=== PATIENT | female | born 1960 | race Caucasian/White ===

== ENCOUNTER 2021-10-17 18:09 | Emergency (ER) | payer MEDICARE ==
[~2021-10-17] VITALS: Ht 165.1 cm; Wt 79.8 kg
[2021-10-17] MEDS ORDERED: ACET325 PO (18:28)
[2021-10-17] MEDS ORDERED: Aspir 8181 MG PO (18:28)
[2021-10-17] MEDS ORDERED: ELIQUIS2.5 MG PO (18:28)
[2021-10-17] MEDS ORDERED: ATOR40TA PO (18:28)
[2021-10-17] MEDS ORDERED: LEVSOD100 PO (18:29)
[2021-10-17] MEDS ORDERED: LISI5 PO (18:29)
[2021-10-17] MEDS ORDERED: Budeprion Xl300 MG PO (18:29)
[2021-10-17] MEDS ORDERED: FURO40 PO (18:29)
[2021-10-17] MEDS ORDERED: CARV6.25 PO (18:29)
[2021-10-17] MEDS ORDERED: METO10 PO (18:30)
[2021-10-17] MEDS ORDERED: METO2.5 PO (18:30)
[2021-10-17] MEDS ORDERED: MAGNESIUM OXID500 MG PO (18:30)
[2021-10-17] MEDS ORDERED: NITR.4SL SL (18:31)
[2021-10-17] MEDS ORDERED: ONDA4 (18:31)
[2021-10-17] MEDS ORDERED: CLOP75 PO (18:32)
[2021-10-17] MEDS ORDERED: POTA10T PO (18:32)
[2021-10-17] MEDS ORDERED: OXYC5 PO (18:32)
[2021-10-17] MEDS ORDERED: ALBU90OI6 INH (18:32)
[2021-10-17] MEDS ORDERED: TOPI25 PO (18:33)
[2021-10-17] MEDS ORDERED: VENL75ER PO (18:33)
== END 2021-10-17 19:53 | disposition home or self-care (01) ==
LOC: ER 18:09
DX: R04.0 Epistaxis (principal); I10 Essential (primary) hypertension; I25.2 Old myocardial infarction
CPT/HCPCS: 30901; 99284-25; A9270

== ENCOUNTER 2021-10-28 07:59 | Emergency (ER) | payer MEDICARE, OTHER ==
[~2021-10-28] VITALS: Ht 165.1 cm; Wt 64.9 kg
[~2021-10-28 07:59] MED LIST: ACET325 PO; ALBU90OI6 INH; ATOR40TA PO; Aspir 8181 MG PO; Budeprion Xl300 MG PO; CARV6.25 PO; CLOP75 PO; ELIQUIS2.5 MG PO; FURO40 PO; LEVSOD100 PO; LISI5 PO; MAGNESIUM OXID500 MG PO; METO10 PO; METO2.5 PO; NITR.4SL SL; ONDA4; OXYC5 PO; POTA10T PO; TOPI25 PO; VENL75ER PO
[2021-10-28 09:40] LABS: Calcium, Ionized (POC) 1.19 mmol/L (1.10-1.46); Chloride (POC) 98 mmol/L (98-108); Glucose (ISTAT POC) 103 mg/dL (70-99); Hemoglobin (POC) 10.5 g/dL (12.0-16.0); Potassium (POC) 5.7 mmol/L (3.5-5.5); Sodium (POC) 125 mmol/L (135-148); Total CO2 (POC) 19 mmol/L (21-32)
== END 2021-10-28 10:41 | disposition home or self-care (01) ==
LOC: ER 07:59
PROVIDERS: Emergency Medicine
DX: K91.840 Postprocedural hemorrhage of a digestive system organ or structure following a digestive system procedure (principal); I10 Essential (primary) hypertension; I25.2 Old myocardial infarction; Z87.891 Personal history of nicotine dependence; Z88.5 Allergy status to narcotic agent; Z88.6 Allergy status to analgesic agent; Z88.8 Allergy status to other drugs, medicaments and biological substances; Z91.048 Other nonmedicinal substance allergy status; Z79.899 Other long term (current) drug therapy
CPT/HCPCS: 80047; 85014; 99283

== ENCOUNTER 2021-10-29 20:23 | Emergency (ER) | payer MEDICARE, OTHER ==
[~2021-10-29] VITALS: Ht 172.7 cm; Wt 72.6 kg
== END 2021-10-29 23:31 | disposition home or self-care (01) ==
LOC: ER 20:23
DX: L76.22 Postprocedural hemorrhage of skin and subcutaneous tissue following other procedure (principal); I10 Essential (primary) hypertension; I25.2 Old myocardial infarction; Z87.891 Personal history of nicotine dependence
CPT/HCPCS: 99283

== ENCOUNTER 2021-10-31 14:16 | Emergency (ER) | payer MEDICARE ==
[~2021-10-31] VITALS: Ht 167.6 cm; Wt 72.6 kg
[2021-10-31] MEDS ORDERED: MELA3 PO (14:33)
[2021-10-31 14:39] LABS: BASOPHILS ABSOLUTE AUTO 0.03 K/mm3 (0.00-0.23); BASOPHILS PERCENT AUTO 0 % (0-2); EOSINOPHILS ABSOLUTE AUTO 0.06 K/mm3 (0.00-0.68); EOSINOPHILS PERCENT AUTO 1 % (0-6); Hematocrit 24.9 % (33.0-51.0); Hemoglobin 8.3 g/dL (11.5-16.0); IMMATURE GRAN PERCENT AUTO 1 % (0-1); LYMPHOCYTES PERCENT AUTO 15 % (21-46); MONOCYTES ABSOLUTE AUTO 1.28 K/mm3 (0.16-1.47); MONOCYTES PERCENT AUTO 15 % (4-13); Mean Corpuscular HGB 33.1 pg (26.0-34.0); Mean Corpuscular HGB Conc 33.3 g/dL (31.5-36.5); Mean Corpuscular Volume 99 fL (80-100); Mean Platelet Volume 10.4 fL (9.1-12.4); NEUTROPHILS ABSOLUTE AUTO 5.65 K/mm3 (1.96-9.15); NEUTROPHILS PERCENT AUTO 67 % (41-73); Platelet Count 427 K/mm3 (150-400); RDW Coefficient Variation 22.4 % (11.7-14.2); RDW Standard Deviation 77.7 fL (35.1-46.3); Red Blood Cell Count 2.51 M/mm3 (3.80-5.20); White Blood Cell Count 8.42 K/mm3 (4.00-11.30)
[2021-10-31 14:48] LABS: Potassium, Blood 3.8 mmol/L (3.5-5.5)
[2021-10-31 16:53] LABS: Influenza A, PCR NEGATIVE (NEGATIVE); Influenza B, PCR NEGATIVE (NEGATIVE); Resp Syncytial Virus, PCR NEGATIVE (NEGATIVE); SARS-Cov-2 (COVID-19) PCR, MMC NEGATIVE (NEGATIVE)
== END 2021-10-31 21:42 | disposition short-term general hospital (02) ==
LOC: ER 14:16
PROVIDERS: Emergency Medicine
DX: K91.840 Postprocedural hemorrhage of a digestive system organ or structure following a digestive system procedure (principal); I10 Essential (primary) hypertension; Z20.822 Contact with and (suspected) exposure to COVID-19; Z87.891 Personal history of nicotine dependence; Z88.5 Allergy status to narcotic agent; Z88.6 Allergy status to analgesic agent; Z88.8 Allergy status to other drugs, medicaments and biological substances; Z79.82 Long term (current) use of aspirin; Z79.899 Other long term (current) drug therapy; Z98.890 Other specified postprocedural states
CPT/HCPCS: 0241U; 36415; 80048; 85025; 86850; 86900; 86901; 99284; J7030